=== PATIENT | female | born 1930 | race Caucasian/White ===

== ENCOUNTER 2018-03-11 09:57 | Inpatient (IN) ==
[2018-03-11] MEDS ORDERED: ONDANSETRON 4 MG/2 ML VIAL IV STA (10:23)
[2018-03-11] MEDS ORDERED: cefTRIAXone 1,000 MG in SODIUM CHLORIDE 0.9% 100 ML IV STA (10:23)
[2018-03-11] MEDS ORDERED: methylPREDNISolone SOD SUC 125 MG/2 ML VIAL IV STA (10:23)
[2018-03-11] MEDS ORDERED: DILTIAZEM 50 MG/10 ML VIAL IV STA (10:23)
[2018-03-11] MEDS ORDERED: LEVALBUTEROL 1.25 MG/3 ML NEB RESP TX STA (10:23)
[2018-03-11] MEDS ORDERED: SODIUM CHLORIDE 0.9% 500 ML IV STA (10:23)
[2018-03-11 11:05] LABS: Basophils # 0.1 10*3/uL (0.0-0.2); Basophils % 0.2 % (0.0-0.8); Hematocrit 42.2 VOL% (35.7-47.0); Hemoglobin 13.8 GM/DL (12.0-16.0); Immature Granulocytes % 0.6 %; Immature Granulocytes Absolute 0.14 #; Lymphocytes # 1.3 10*3/uL (1.4-4.0); Lymphocytes % 5.5 % (21.3-54.2); Mean Corpuscular HGB Conc 32.7 GM/DL (32-36); Mean Corpuscular Hemoglobin 31 PG (27-34); Mean Corpuscular Volume 94.2 FL (87-102); Mean Platelet Volume 10.5 FL (9.6-12.0); Monocytes % 8.4 % (1.7-12.7); Neutrophils % 85.3 % (38.7-73.9); Platelet Count 204 T/CUMM (130-400); Red Blood Count 4.48 MC/CUMM (3.8-5.5); Red Cell Distribution Width 15.2 % (9.3-17.3); White Blood Count 23.5 T/CUMM (4-12)
[2018-03-11 11:10] LABS: INR 1.3; PT Patient Result 13.9 SECS
[2018-03-11 11:24] LABS: Alanine Aminotransferase 22 U/L (13-56); Albumin 3.9 G/DL (3.4-5.0); Alkaline Phosphatase 118 U/L (45-117); Aspartate Amino Transferase 25 U/L (0-37); Blood Urea Nitrogen 13 MG/DL (7-18); Calcium 9.4 MG/DL (8.5-10.1); Glucose 103 MG/DL (74-106); Osmolality,Calculated 267.2 MOS/KG (273-304); Potassium 4.1 MMOL/L (3.5-5.1); Sodium 134 MMOL/L (136-145); Total Protein 8.4 G/DL (6.4-8.3); Troponin I Only < 0.015 NG/ML (0.00-0.045)
[2018-03-11] MEDS ORDERED: ENOXAPARIN 100 MG/ML SYRINGE SUBCUT STA (11:26)
[2018-03-11 11:46] LABS: Giant Platelets Few; Hypochromasia 1+; Lymphocytes 11 % (20-55); Platelet Estimate Adequate; Segmented Neutrophils 87 % (50-85); Total Cells Counted 100
[2018-03-11] MEDS ORDERED: DILTIAZEM INJ 100 MG in SODIUM CHLORIDE 0.9% 100 ML IV SCH (12:30)
[2018-03-11] MEDS ORDERED: diphenhydrAMINE CAP 25 MG CAPSULE PO PRN (13:02)
[2018-03-11] MEDS ORDERED: DOCUSATE SODIUM 100 MG CAPSULE PO PRN (13:02)
[2018-03-11] MEDS ORDERED: ACETAMINOPHEN 325 MG TABLET PO PRN (13:02)
[2018-03-11] MEDS ORDERED: guaiFENesin/DM ER 600-30 MG TABLET PO PRN (13:02)
[2018-03-11] MEDS ORDERED: ONDANSETRON 4 MG/2 ML VIAL IV PRN (13:02)
[2018-03-11] MEDS ORDERED: CETIRIZINE 10 MG TABLET PO PRN (13:06)
[2018-03-11] MEDS ORDERED: ALBUTEROL 2.5 MG/3 ML NEB RESP TX PRN (13:08)
[2018-03-11] MEDS: PANTOPRAZOLE 40 MG TABLET PO SCH (15:22)
[2018-03-11] MEDS: LEVOFLOXACIN INJ 750 MG in PREMIX 1 EACH IV SCH (15:23)
[2018-03-11 15:30] LABS: Apearance,Urine Slightly Hazy (Clear); Bacteria,Urine Occasional /HPF (Few); Bilirubin,Urine Negative (Negative); Blood, Urine Negative (Negative); Glucose,Urine (UA) Negative (Negative); Ketones,Urine 20 mg/dL (Negative); Mucus,Urine Occasional /LPF (Occasional); Nitrite,Urine Negative (Negative); Protein,Urine Negative; RBC,Urine <1 /HPF (0-4); Squamous Epithelial Cell,Urine Occasional /HPF (0-10); Urine Color Yellow (Yellow); Urine Specific Gravity 1.006 (1.001-1.035); Urine Urobilinogen < 2.0 EU/DL (0.2-1.0); WBC,Urine 2 /HPF (0-6)
[2018-03-11] MEDS: SODIUM CHLORIDE 0.9% 1,000 ML IV SCH (15:30)
[2018-03-11] MEDS: BUDESONIDE/FORMOTEROL 160-4.5 INHALER 6 GM INH SCH ×2 (15:30→22:22)
[2018-03-11] MEDS: WARFARIN 5 MG TABLET PO SCH (17:28)
[2018-03-11] MEDS ORDERED: WARFARIN 2.5 MG TABLET PO ONE (18:00)
[2018-03-11] MEDS: ALBUTEROL/IPRATROPIUM 3 ML NEB RESP TX SCH (20:04)
[2018-03-11] MEDS ORDERED: ENOXAPARIN 60 MG/0.6 ML SYRINGE SUBCUT SCH (21:00)
[2018-03-11] MEDS: DILTIAZEM 60 MG TABLET PO SCH (21:56)
[2018-03-11] MEDS: DIGOXIN 0.125 MG TABLET PO SCH (21:57)
[2018-03-11] MEDS: methylPREDNISolone SOD SUC 40 MG/1 ML VIAL IV SCH (22:21)
[2018-03-12] MEDS: ALBUTEROL/IPRATROPIUM 3 ML NEB RESP TX SCH ×4 (01:23→19:07)
[2018-03-12 05:03] LABS: Basophils % 0.1 % (0.0-0.8); Hematocrit 34.1 VOL% (35.7-47.0); Hemoglobin 11.4 GM/DL (12.0-16.0); Immature Granulocytes % 0.7 %; Lymphocytes # 0.3 10*3/uL (1.4-4.0); Lymphocytes % 1.9 % (21.3-54.2); Mean Corpuscular HGB Conc 33.4 GM/DL (32-36); Mean Corpuscular Hemoglobin 31 PG (27-34); Mean Corpuscular Volume 92.9 FL (87-102); Mean Platelet Volume 11.3 FL (9.6-12.0); Monocytes # 0.1 10*3/uL (0.11-0.8); Monocytes % 0.9 % (1.7-12.7); Neutrophils # 14.6 10*3/uL (1.4-7.4); Neutrophils % 96.4 % (38.7-73.9); Platelet Count 170 T/CUMM (130-400); Red Blood Count 3.67 MC/CUMM (3.8-5.5); Red Cell Distribution Width 15.3 % (9.3-17.3); White Blood Count 15.1 T/CUMM (4-12)
[2018-03-12 05:41] LABS: Risk Ratio 2.7; VLDL CHOLESTEROL 9.8 MG/DL
[2018-03-12 05:44] LABS: Calcium 8.4 MG/DL (8.5-10.1); Osmolality,Calculated 288.3 MOS/KG (273-304); Potassium 4.3 MMOL/L (3.5-5.1); Thyroid Stimulating Hormone 0.091 uIU/ml (0.358-3.74)
[2018-03-12 05:45] LABS: Band Neutrophils 1 % (0-10); Hypochromasia Slight; Lymphocytes 1 % (20-55); Segmented Neutrophils 96 % (50-85); Total Cells Counted 100
[2018-03-12 05:46] LABS: Microcytosis 1+; Platelet Estimate Adequate
[2018-03-12 05:48] LABS: INR 1.5; PT Patient Result 15.4 SECS
[2018-03-12] MEDS: LEVOTHYROXINE 50 MCG TABLET PO SCH (06:47)
[2018-03-12] MEDS: SODIUM CHLORIDE 0.9% 1,000 ML IV SCH ×2 (06:49→23:02)
[2018-03-12] MEDS: PANTOPRAZOLE 40 MG TABLET PO SCH (09:03)
[2018-03-12] MEDS: DILTIAZEM 60 MG TABLET PO SCH ×2 (09:03→21:37)
[2018-03-12] MEDS: ASCORBIC ACID 500 MG TABLET PO SCH (09:03)
[2018-03-12] MEDS: CHOLECALCIFEROL 1,000 UNIT TABLET PO SCH (09:03)
[2018-03-12] MEDS: methylPREDNISolone SOD SUC 40 MG/1 ML VIAL IV SCH ×2 (09:04→21:38)
[2018-03-12] MEDS: BUDESONIDE/FORMOTEROL 160-4.5 INHALER 6 GM INH SCH ×2 (09:04→21:41)
[2018-03-12] MEDS: LEVOFLOXACIN INJ 750 MG in PREMIX 1 EACH IV SCH (15:15)
[2018-03-12] MEDS: WARFARIN 5 MG TABLET PO SCH (17:34)
[2018-03-12] MEDS: DIGOXIN 0.125 MG TABLET PO SCH (21:37)
[2018-03-13] MEDS: ALBUTEROL/IPRATROPIUM 3 ML NEB RESP TX SCH ×4 (00:06→20:05)
[2018-03-13 04:59] LABS: Basophils % 0.1 % (0.0-0.8); Hematocrit 33.8 VOL% (35.7-47.0); Immature Granulocytes % 1.1 %; Immature Granulocytes Absolute 0.17 #; Lymphocytes # 0.4 10*3/uL (1.4-4.0); Lymphocytes % 2.4 % (21.3-54.2); Mean Corpuscular HGB Conc 32.5 GM/DL (32-36); Mean Corpuscular Hemoglobin 31 PG (27-34); Mean Corpuscular Volume 93.9 FL (87-102); Monocytes # 0.5 10*3/uL (0.11-0.8); Monocytes % 3.4 % (1.7-12.7); Neutrophils # 14.7 10*3/uL (1.4-7.4); Platelet Count 199 T/CUMM (130-400); Red Cell Distribution Width 15.6 % (9.3-17.3); White Blood Count 15.8 T/CUMM (4-12)
[2018-03-13 05:37] LABS: Hypochromasia Slight; Lymphocytes 3 % (20-55); Microcytosis 1+; Segmented Neutrophils 95 % (50-85); Total Cells Counted 100
[2018-03-13 05:38] LABS: Platelet Estimate Adequate
[2018-03-13 05:40] LABS: Calcium 8.5 MG/DL (8.5-10.1); Osmolality,Calculated 288.1 MOS/KG (273-304)
[2018-03-13 05:41] LABS: INR 1.7
[2018-03-13] MEDS: LEVOTHYROXINE 50 MCG TABLET PO SCH (06:27)
[2018-03-13] MEDS: ASCORBIC ACID 500 MG TABLET PO SCH (08:34)
[2018-03-13] MEDS: CHOLECALCIFEROL 1,000 UNIT TABLET PO SCH (08:34)
[2018-03-13] MEDS: PANTOPRAZOLE 40 MG TABLET PO SCH (08:35)
[2018-03-13] MEDS: methylPREDNISolone SOD SUC 40 MG/1 ML VIAL IV SCH ×2 (08:35→21:47)
[2018-03-13] MEDS: DILTIAZEM 60 MG TABLET PO SCH ×2 (08:35→21:49)
[2018-03-13] MEDS: BUDESONIDE/FORMOTEROL 160-4.5 INHALER 6 GM INH SCH ×2 (08:36→21:51)
[2018-03-13] MEDS: SODIUM CHLORIDE 0.9% 1,000 ML IV SCH ×2 (13:10→21:50)
[2018-03-13] MEDS: LEVOFLOXACIN INJ 750 MG in PREMIX 1 EACH IV SCH (15:13)
[2018-03-13] MEDS: WARFARIN 5 MG TABLET PO SCH (17:22)
[2018-03-13] MEDS: DIGOXIN 0.125 MG TABLET PO SCH (21:50)
[2018-03-14] MEDS: ALBUTEROL/IPRATROPIUM 3 ML NEB RESP TX SCH ×2 (01:03→07:46)
[2018-03-14] MEDS: LEVOTHYROXINE 50 MCG TABLET PO SCH (06:02)
[2018-03-14] MEDS: SODIUM CHLORIDE 0.9% 1,000 ML IV SCH ×2 (06:07→10:17)
[2018-03-14 06:13] LABS: Basophils % 0.2 % (0.0-0.8); Hematocrit 34.9 VOL% (35.7-47.0); Hemoglobin 11.6 GM/DL (12.0-16.0); Immature Granulocytes % 2.4 %; Immature Granulocytes Absolute 0.33 #; Lymphocytes # 0.4 10*3/uL (1.4-4.0); Lymphocytes % 2.8 % (21.3-54.2); Mean Corpuscular HGB Conc 33.2 GM/DL (32-36); Mean Corpuscular Hemoglobin 31 PG (27-34); Mean Corpuscular Volume 93.1 FL (87-102); Mean Platelet Volume 10.4 FL (9.6-12.0); Monocytes # 0.5 10*3/uL (0.11-0.8); Monocytes % 3.9 % (1.7-12.7); Neutrophils # 12.2 10*3/uL (1.4-7.4); Neutrophils % 90.7 % (38.7-73.9); Platelet Count 221 T/CUMM (130-400); Red Blood Count 3.75 MC/CUMM (3.8-5.5); Red Cell Distribution Width 15.9 % (9.3-17.3); White Blood Count 13.5 T/CUMM (4-12)
[2018-03-14 06:27] LABS: INR 2.3
[2018-03-14 06:35] LABS: Giant Platelets Few; Hypochromasia 1+; Lymphocytes 7 % (20-55); Ovalocytes Slight; Platelet Estimate Adequate; Segmented Neutrophils 91 % (50-85); Total Cells Counted 100
[2018-03-14 06:36] LABS: Microcytosis Slight
[2018-03-14 06:44] LABS: Calcium 8.5 MG/DL (8.5-10.1); Osmolality,Calculated 287.1 MOS/KG (273-304); Potassium 3.7 MMOL/L (3.5-5.1)
[2018-03-14] MEDS: methylPREDNISolone SOD SUC 40 MG/1 ML VIAL IV SCH (09:45)
[2018-03-14] MEDS: DILTIAZEM 60 MG TABLET PO SCH (10:18)
[2018-03-14] MEDS: ASCORBIC ACID 500 MG TABLET PO SCH (10:18)
[2018-03-14] MEDS: BUDESONIDE/FORMOTEROL 160-4.5 INHALER 6 GM INH SCH (10:19)
[2018-03-14] MEDS: CHOLECALCIFEROL 1,000 UNIT TABLET PO SCH (10:19)
[2018-03-14] MEDS: PANTOPRAZOLE 40 MG TABLET PO SCH (10:19)
[2018-03-14 12:01] VITALS: BP 135/80
== END 2018-03-14 14:30 | disposition home or self-care (01) | DRG 192 ==
LOC: N.ED 09:57 → N.EDINP 13:02 → N.TELES 13:34

== ENCOUNTER 2019-01-21 18:12 | Inpatient (IN) ==
[2019-01-21] MEDS ORDERED: DILTIAZEM 50 MG/10 ML VIAL IV STA (18:37)
[2019-01-21 19:07] LABS: Basophils # 0.1 10*3/uL (0.0-0.2); Basophils % 0.2 % (0.0-0.8); Hemoglobin 12.5 GM/DL (12.0-16.0); Immature Granulocytes % 0.7 %; Immature Granulocytes Absolute 0.14 #; Lymphocytes # 0.6 10*3/uL (1.4-4.0); Lymphocytes % 3.2 % (21.3-54.2); Mean Corpuscular HGB Conc 31.3 GM/DL (32-36); Mean Corpuscular Hemoglobin 30 PG (27-34); Mean Corpuscular Volume 94.6 FL (87-102); Mean Platelet Volume 10.7 FL (9.6-12.0); Monocytes # 1.3 10*3/uL (0.11-0.8); Monocytes % 6.5 % (1.7-12.7); Neutrophils % 89.4 % (38.7-73.9); Platelet Count 206 T/CUMM (130-400); Red Blood Count 4.23 MC/CUMM (3.8-5.5); Red Cell Distribution Width 16.2 % (9.3-17.3); White Blood Count 20.1 T/CUMM (4-12)
[2019-01-21 19:20] LABS: INR 1.8; PT Patient Result 19.5 SECS
[2019-01-21 19:39] LABS: Albumin 3.6 G/DL (3.4-5.0); Bilirubin,Total 0.6 MG/DL (0.2-1.0); Calcium 8.7 MG/DL (8.5-10.1); Potassium 4.1 MMOL/L (3.5-5.1)
[2019-01-21 19:43] LABS: Band Neutrophils 3 % (0-10); Lymphocytes 5 % (20-55); Platelet Estimate Normal; Segmented Neutrophils 89 % (50-85)
[2019-01-21 19:44] LABS: Stomatocytes Few
[2019-01-21 19:45] LABS: Anisocytosis Slight
[2019-01-21 19:46] LABS: Total Cells Counted 100
[2019-01-21] MEDS ORDERED: SODIUM CHLORIDE 0.9% 1,000 ML IV STA (20:34)
[2019-01-21] MEDS ORDERED: VANCOMYCIN INJ 1,000 MG in SODIUM CHLORIDE 0.9% 250 ML IV STA (20:34)
[2019-01-21] MEDS ORDERED: CEFEPIME 2,000 MG in SODIUM CHLORIDE 0.9% 100 ML IV STA (20:34)
[2019-01-21] MEDS ORDERED: CEFEPIME 2,000 MG VIAL ONE (20:38)
[2019-01-21] MEDS ORDERED: SODIUM CHLORIDE 0.9% 100 ML IV ONE (20:39)
[2019-01-21] MEDS ORDERED: ACETAMINOPHEN 325 MG TABLET PO PRN (22:01)
[2019-01-21] MEDS ORDERED: BUDESONIDE/FORMOTEROL 160-4.5 INHALER 6 GM INH PRN (22:11)
[2019-01-21] MEDS ORDERED: dilTIAZem Drip 125 MG/125 ML PREMIX IV SCH (22:30)
[2019-01-22] MEDS: DIGOXIN 0.25 MG TABLET PO SCH ×2 (00:30→22:08)
[2019-01-22] MEDS: AZITHROMYCIN INJ 500 MG in SODIUM CHLORIDE 0.9% 250 ML IV SCH (00:30)
[2019-01-22] MEDS: LEVOTHYROXINE 50 MCG TABLET PO SCH (06:29)
[2019-01-22 07:02] LABS: Basophils # 0.1 10*3/uL (0.0-0.2); Basophils % 0.3 % (0.0-0.8); Immature Granulocytes % 0.9 %; Immature Granulocytes Absolute 0.24 #; Lymphocytes # 1.4 10*3/uL (1.4-4.0); Lymphocytes % 5.1 % (21.3-54.2); Mean Corpuscular HGB Conc 32.4 GM/DL (32-36); Mean Corpuscular Hemoglobin 30 PG (27-34); Mean Corpuscular Volume 93.7 FL (87-102); Mean Platelet Volume 10.1 FL (9.6-12.0); Monocytes % 7.2 % (1.7-12.7); Neutrophils # 24.2 10*3/uL (1.4-7.4); Neutrophils % 86.5 % (38.7-73.9); Platelet Count 171 T/CUMM (130-400); Red Blood Count 3.63 MC/CUMM (3.8-5.5)
[2019-01-22 07:15] LABS: INR 1.9; PT Patient Result 20.8 SECS
[2019-01-22 07:26] LABS: Anisocytosis 1+; Band Neutrophils 15 % (0-10); Lymphocytes 6 % (20-55); Macrocytosis 1+; Platelet Estimate Normal; Segmented Neutrophils 73 % (50-85); Total Cells Counted 100
[2019-01-22] MEDS: ASCORBIC ACID 500 MG TABLET PO SCH (08:34)
[2019-01-22] MEDS: CHOLECALCIFEROL 1,000 UNIT TABLET PO SCH (08:34)
[2019-01-22] MEDS: PANTOPRAZOLE 40 MG TABLET PO SCH (08:34)
[2019-01-22] MEDS ORDERED: WARFARIN 1 MG TABLET PO ONE (09:41)
[2019-01-22] MEDS ORDERED: SODIUM CHLORIDE 0.9% 1,000 ML IV SCH (10:00)
[2019-01-22] MEDS: LEVOFLOXACIN INJ 500 MG in PREMIX 1 EACH IV SCH (10:19)
[2019-01-22] MEDS: PIPERACILLIN/TAZOBACTAM 3,375 MG in SODIUM CHLORIDE 0.9% 100 ML IV SCH ×2 (11:46→22:08)
[2019-01-22] MEDS ORDERED: cefTRIAXone 1,000 MG in SYRINGE 1 EACH IV SCH (12:00)
[2019-01-22] MEDS ORDERED: WARFARIN 5 MG TABLET PO SCH (17:00)
[2019-01-22] MEDS: DILTIAZEM 30 MG TABLET PO SCH (22:08)
[2019-01-23] MEDS: AZITHROMYCIN INJ 500 MG in SODIUM CHLORIDE 0.9% 250 ML IV SCH (02:00)
[2019-01-23] MEDS ORDERED: AZITHROMYCIN INJ 500 MG in SODIUM CHLORIDE 0.9% 250 ML IV SCH (02:30)
[2019-01-23] MEDS: guaiFENesin/CODEINE 5 ML LIQUID PO PRN ×3 (03:42→23:26)
[2019-01-23] MEDS: PIPERACILLIN/TAZOBACTAM 3,375 MG in SODIUM CHLORIDE 0.9% 100 ML IV SCH ×3 (05:38→20:50)
[2019-01-23 05:39] LABS: Basophils % 0.1 % (0.0-0.8); Eosinophils % 0.2 % (0.00-10.9); Hematocrit 33.3 VOL% (35.7-47.0); Hemoglobin 10.2 GM/DL (12.0-16.0); Immature Granulocytes % 0.6 %; Immature Granulocytes Absolute 0.09 #; Lymphocytes # 1.1 10*3/uL (1.4-4.0); Lymphocytes % 7.7 % (21.3-54.2); Mean Corpuscular HGB Conc 30.6 GM/DL (32-36); Mean Corpuscular Hemoglobin 30 PG (27-34); Mean Corpuscular Volume 97.1 FL (87-102); Mean Platelet Volume 10.8 FL (9.6-12.0); Monocytes # 1.5 10*3/uL (0.11-0.8); Monocytes % 10.2 % (1.7-12.7); Neutrophils # 11.8 10*3/uL (1.4-7.4); Neutrophils % 81.2 % (38.7-73.9); Platelet Count 163 T/CUMM (130-400); Red Blood Count 3.43 MC/CUMM (3.8-5.5); Red Cell Distribution Width 16.7 % (9.3-17.3); White Blood Count 14.5 T/CUMM (4-12)
[2019-01-23] MEDS: LEVOTHYROXINE 50 MCG TABLET PO SCH (05:39)
[2019-01-23 05:52] LABS: INR 1.7; PT Patient Result 18.8 SECS
[2019-01-23 05:56] LABS: INR 1.7; PT Patient Result 18.7 SECS; Partial Thromboplastin Time 39.1 SECS (0-40)
[2019-01-23 06:15] LABS: Calcium 8.1 MG/DL (8.5-10.1); Osmolality,Calculated 280.3 MOS/KG (273-304); Potassium 3.9 MMOL/L (3.5-5.1); Thyroid Stimulating Hormone 0.445 uIU/ml (0.358-3.74)
[2019-01-23] MEDS: DILTIAZEM 30 MG TABLET PO SCH ×2 (08:54→20:50)
[2019-01-23] MEDS ORDERED: AZITHROMYCIN 250 MG TABLET PO SCH (09:00)
[2019-01-23] MEDS: CHOLECALCIFEROL 1,000 UNIT TABLET PO SCH (10:14)
[2019-01-23] MEDS: PANTOPRAZOLE 40 MG TABLET PO SCH (10:14)
[2019-01-23] MEDS: ASCORBIC ACID 500 MG TABLET PO SCH (10:14)
[2019-01-23] MEDS: LEVOFLOXACIN INJ 500 MG in PREMIX 1 EACH IV SCH (10:16)
[2019-01-23] MEDS ORDERED: MAGNESIUM HYDROXIDE SUSP 30 ML UDCUP PO ONE (18:35)
[2019-01-23] MEDS: DIGOXIN 0.25 MG TABLET PO SCH (20:50)
[2019-01-24 05:23] LABS: INR 1.8; PT Patient Result 19.1 SECS
[2019-01-24] MEDS: LEVOTHYROXINE 50 MCG TABLET PO SCH (05:33)
[2019-01-24] MEDS: PIPERACILLIN/TAZOBACTAM 3,375 MG in SODIUM CHLORIDE 0.9% 100 ML IV SCH ×2 (05:34→12:56)
[2019-01-24 05:38] LABS: Basophils % 0.3 % (0.0-0.8); Eosinophils # 0.1 10*3/uL (0.0-0.87); Eosinophils % 1.1 % (0.00-10.9); Hematocrit 34.2 VOL% (35.7-47.0); Hemoglobin 10.4 GM/DL (12.0-16.0); Immature Granulocytes % 0.5 %; Immature Granulocytes Absolute 0.05 #; Lymphocytes # 1.2 10*3/uL (1.4-4.0); Lymphocytes % 11.5 % (21.3-54.2); Mean Corpuscular HGB Conc 30.4 GM/DL (32-36); Mean Corpuscular Hemoglobin 29 PG (27-34); Mean Corpuscular Volume 96.3 FL (87-102); Mean Platelet Volume 10.6 FL (9.6-12.0); Monocytes # 1.2 10*3/uL (0.11-0.8); Monocytes % 12.3 % (1.7-12.7); Neutrophils # 7.4 10*3/uL (1.4-7.4); Neutrophils % 74.3 % (38.7-73.9); Platelet Count 197 T/CUMM (130-400); Red Blood Count 3.55 MC/CUMM (3.8-5.5); Red Cell Distribution Width 16.4 % (9.3-17.3)
[2019-01-24 05:41] LABS: Calcium 8.3 MG/DL (8.5-10.1); Osmolality,Calculated 276.4 MOS/KG (273-304); Potassium 3.9 MMOL/L (3.5-5.1)
[2019-01-24] MEDS: guaiFENesin/CODEINE 5 ML LIQUID PO PRN ×2 (08:35→18:02)
[2019-01-24] MEDS: CHOLECALCIFEROL 1,000 UNIT TABLET PO SCH (08:35)
[2019-01-24] MEDS: DILTIAZEM 30 MG TABLET PO SCH ×2 (08:36→21:50)
[2019-01-24] MEDS: ASCORBIC ACID 500 MG TABLET PO SCH (08:36)
[2019-01-24] MEDS: PANTOPRAZOLE 40 MG TABLET PO SCH (08:36)
[2019-01-24] MEDS: LEVOFLOXACIN INJ 500 MG in PREMIX 1 EACH IV SCH (11:06)
[2019-01-24] MEDS: AMOXICILLIN/CLAV 875 MG TABLET PO SCH ×2 (14:15→21:50)
[2019-01-24] MEDS ORDERED: WARFARIN 5 MG TABLET PO SCH (18:00)
[2019-01-24] MEDS: DIGOXIN 0.25 MG TABLET PO SCH (21:51)
[2019-01-25 05:03] LABS: INR 1.4; PT Patient Result 15.5 SECS
[2019-01-25] MEDS: LEVOTHYROXINE 50 MCG TABLET PO SCH (05:58)
[2019-01-25 08:21] VITALS: BP 127/70
[2019-01-25] MEDS: CHOLECALCIFEROL 1,000 UNIT TABLET PO SCH (08:48)
[2019-01-25] MEDS: DILTIAZEM 30 MG TABLET PO SCH (08:49)
[2019-01-25] MEDS: ASCORBIC ACID 500 MG TABLET PO SCH (08:49)
[2019-01-25] MEDS: PANTOPRAZOLE 40 MG TABLET PO SCH (08:49)
[2019-01-25] MEDS: AMOXICILLIN/CLAV 875 MG TABLET PO SCH (08:56)
[2019-01-25] MEDS ORDERED: AZITHROMYCIN 250 MG TABLET PO SCH (09:00)
== END 2019-01-25 12:08 | disposition home health service (06) | DRG 179 ==
LOC: EDBD → EDUNIT# → N.ED 18:12 → N.EDINP 22:01 → SUATTDRO 22:01 → N.TELES 22:49
PROVIDERS: ADMIT Internal Medicine; ATTEND Internal Medicine

== ENCOUNTER 2019-04-01 19:43 | Inpatient (IN) ==
[2019-04-01] MEDS ORDERED: fentaNYL 100 MCG/2 ML VIAL IV STA (21:10)
[2019-04-01 21:35] LABS: Basophils # 0.1 10*3/uL (0.0-0.2); Basophils % 0.6 % (0.0-0.8); Eosinophils # 0.1 10*3/uL (0.0-0.87); Hematocrit 39.6 VOL% (35.7-47.0); Hemoglobin 12.1 GM/DL (12.0-16.0); Immature Granulocytes % 1.2 %; Immature Granulocytes Absolute 0.11 #; Lymphocytes # 1.4 10*3/uL (1.4-4.0); Lymphocytes % 14.9 % (21.3-54.2); Mean Corpuscular HGB Conc 30.6 GM/DL (32-36); Mean Corpuscular Volume 96.8 FL (87-102); Mean Platelet Volume 10.2 FL (9.6-12.0); Monocytes % 9.6 % (1.7-12.7); Neutrophils % 72.7 % (38.7-73.9); Platelet Count 199 T/CUMM (130-400); Red Blood Count 4.09 MC/CUMM (3.8-5.5); Red Cell Distribution Width 15.4 % (9.3-17.3)
[2019-04-01 21:52] LABS: Albumin 3.7 G/DL (3.4-5.0); Bilirubin,Total 0.4 MG/DL (0.2-1.0); Calcium 8.8 MG/DL (8.5-10.1); Osmolality,Calculated 284.1 MOS/KG (273-304)
[2019-04-01 22:44] LABS: INR 1.5; PT Patient Result 16.1 SECS
[2019-04-02] MEDS ORDERED: BISACODYL 5 MG TABLET PO PRN (00:50)
[2019-04-02] MEDS ORDERED: DOCUSATE SODIUM 100 MG CAPSULE PO PRN (00:50)
[2019-04-02] MEDS ORDERED: ceFAZolin 1,000 MG in SYRINGE 1 EACH IV ONE (00:50)
[2019-04-02] MEDS ORDERED: ACETAMINOPHEN 325 MG TABLET PO PRN (00:50)
[2019-04-02] MEDS ORDERED: DILTIAZEM 30 MG TABLET PO SCH (01:00)
[2019-04-02] MEDS: DILTIAZEM 30 MG TABLET PO SCH ×4 (02:59→20:43)
[2019-04-02 05:23] LABS: Basophils % 0.2 % (0.0-0.8); Eosinophils % 0.1 % (0.00-10.9); Hematocrit 37.1 VOL% (35.7-47.0); Hemoglobin 11.5 GM/DL (12.0-16.0); Immature Granulocytes % 0.5 %; Immature Granulocytes Absolute 0.07 #; Lymphocytes # 0.8 10*3/uL (1.4-4.0); Lymphocytes % 6.2 % (21.3-54.2); Mean Corpuscular Volume 96.1 FL (87-102); Mean Platelet Volume 10.8 FL (9.6-12.0); Monocytes % 7.2 % (1.7-12.7); Neutrophils % 85.8 % (38.7-73.9); Platelet Count 189 T/CUMM (130-400); Red Blood Count 3.86 MC/CUMM (3.8-5.5); Red Cell Distribution Width 15.5 % (9.3-17.3); White Blood Count 13.4 T/CUMM (4-12)
[2019-04-02 05:38] LABS: INR 1.5; PT Patient Result 16.1 SECS
[2019-04-02 05:39] LABS: Calcium 8.8 MG/DL (8.5-10.1); Osmolality,Calculated 278.5 MOS/KG (273-304)
[2019-04-02] MEDS: LEVOTHYROXINE 75 MCG TABLET PO SCH (06:27)
[2019-04-02] MEDS: PANTOPRAZOLE 40 MG TABLET PO SCH (08:48)
[2019-04-02] MEDS: CHOLECALCIFEROL 1,000 UNIT TABLET PO SCH (08:48)
[2019-04-02] MEDS ORDERED: NON-FORMULARY MEDICATION (Omeprazole 20 MG) PO SCH (09:00)
[2019-04-02] MEDS: DIGOXIN 0.25 MG TABLET PO SCH (13:18)
[2019-04-02] MEDS: oxyCODONE IR 5 MG TABLET PO PRN ×2 (13:51→23:11)
[2019-04-03] MEDS: DILTIAZEM 30 MG TABLET PO SCH ×4 (02:31→20:46)
[2019-04-03 03:24] LABS: Basophils % 0.2 % (0.0-0.8); Eosinophils # 0.1 10*3/uL (0.0-0.87); Eosinophils % 0.5 % (0.00-10.9); Hematocrit 34.5 VOL% (35.7-47.0); Hemoglobin 10.6 GM/DL (12.0-16.0); Immature Granulocytes % 0.6 %; Immature Granulocytes Absolute 0.06 #; Lymphocytes # 1.6 10*3/uL (1.4-4.0); Lymphocytes % 15.6 % (21.3-54.2); Mean Corpuscular HGB Conc 30.7 GM/DL (32-36); Mean Corpuscular Volume 96.6 FL (87-102); Mean Platelet Volume 10.7 FL (9.6-12.0); Monocytes % 12.8 % (1.7-12.7); Neutrophils % 70.3 % (38.7-73.9); Platelet Count 164 T/CUMM (130-400); Red Blood Count 3.57 MC/CUMM (3.8-5.5); Red Cell Distribution Width 15.2 % (9.3-17.3); White Blood Count 10.5 T/CUMM (4-12)
[2019-04-03 03:38] LABS: Calcium 8.5 MG/DL (8.5-10.1); Osmolality,Calculated 276.7 MOS/KG (273-304)
[2019-04-03 03:44] LABS: INR 1.6; PT Patient Result 17.1 SECS
[2019-04-03] MEDS: LEVOTHYROXINE 75 MCG TABLET PO SCH (06:03)
[2019-04-03] MEDS: CHOLECALCIFEROL 1,000 UNIT TABLET PO SCH (09:17)
[2019-04-03] MEDS: PANTOPRAZOLE 40 MG TABLET PO SCH (09:18)
[2019-04-03] MEDS: oxyCODONE IR 5 MG TABLET PO PRN (09:20)
[2019-04-03] MEDS: MORPHINE 4 MG/1 ML VIAL IV PRN (11:25)
[2019-04-03] MEDS: DIGOXIN 0.25 MG TABLET PO SCH (13:49)
[2019-04-04] MEDS: DILTIAZEM 30 MG TABLET PO SCH ×4 (02:23→21:14)
[2019-04-04 04:39] LABS: Basophils % 0.4 % (0.0-0.8); Eosinophils # 0.1 10*3/uL (0.0-0.87); Eosinophils % 1.3 % (0.00-10.9); Hematocrit 32.4 VOL% (35.7-47.0); Hemoglobin 10.1 GM/DL (12.0-16.0); Immature Granulocytes % 0.5 %; Immature Granulocytes Absolute 0.05 #; Lymphocytes # 1.4 10*3/uL (1.4-4.0); Lymphocytes % 12.8 % (21.3-54.2); Mean Corpuscular HGB Conc 31.2 GM/DL (32-36); Mean Corpuscular Volume 95.9 FL (87-102); Mean Platelet Volume 10.3 FL (9.6-12.0); Monocytes % 14.5 % (1.7-12.7); Neutrophils % 70.5 % (38.7-73.9); Platelet Count 150 T/CUMM (130-400); Red Blood Count 3.38 MC/CUMM (3.8-5.5); Red Cell Distribution Width 14.9 % (9.3-17.3)
[2019-04-04 04:58] LABS: INR 1.3
[2019-04-04 05:04] LABS: Calcium 8.4 MG/DL (8.5-10.1); Osmolality,Calculated 273.8 MOS/KG (273-304)
[2019-04-04] MEDS: LEVOTHYROXINE 75 MCG TABLET PO SCH (06:21)
[2019-04-04] MEDS: CHOLECALCIFEROL 1,000 UNIT TABLET PO SCH (08:01)
[2019-04-04] MEDS: PANTOPRAZOLE 40 MG TABLET PO SCH (08:01)
[2019-04-04] MEDS: oxyCODONE IR 5 MG TABLET PO PRN ×2 (09:36→21:14)
[2019-04-04] MEDS: DIGOXIN 0.25 MG TABLET PO SCH (13:47)
[2019-04-05] MEDS: DILTIAZEM 30 MG TABLET PO SCH ×4 (03:02→20:48)
[2019-04-05 06:25] LABS: INR 1.1; PT Patient Result 11.4 SECS
[2019-04-05] MEDS: LEVOTHYROXINE 75 MCG TABLET PO SCH (06:32)
[2019-04-05] MEDS: PANTOPRAZOLE 40 MG TABLET PO SCH (08:43)
[2019-04-05] MEDS: CHOLECALCIFEROL 1,000 UNIT TABLET PO SCH (08:43)
[2019-04-05] MEDS: oxyCODONE IR 5 MG TABLET PO PRN ×2 (08:43→15:32)
[2019-04-05] MEDS: MAGNESIUM HYDROXIDE SUSP 30 ML UDCUP PO PRN ×2 (08:44→12:06)
[2019-04-05] MEDS ORDERED: MAGNESIUM HYDROXIDE SUSP 30 ML UDCUP PO ONE (10:41)
[2019-04-05] MEDS ORDERED: BISACODYL 5 MG TABLET PO ONE (10:41)
[2019-04-05] MEDS: DIGOXIN 0.25 MG TABLET PO SCH (12:06)
[2019-04-05] MEDS: ENOXAPARIN 60 MG/0.6 ML SYRINGE SUBCUT SCH ×2 (12:07→20:49)
[2019-04-05] MEDS: MORPHINE 4 MG/1 ML VIAL IV PRN (17:14)
[2019-04-05] MEDS: ONDANSETRON 4 MG/2 ML VIAL IV PRN (17:18)
[2019-04-05] MEDS ORDERED: WARFARIN 2.5 MG TABLET PO SCH (18:00)
[2019-04-06] MEDS: MORPHINE 4 MG/1 ML VIAL IV PRN ×2 (00:15→10:15)
[2019-04-06] MEDS: DILTIAZEM 30 MG TABLET PO SCH ×2 (03:16→08:33)
[2019-04-06 05:13] LABS: PT Patient Result 10.9 SECS
[2019-04-06] MEDS: LEVOTHYROXINE 75 MCG TABLET PO SCH (05:50)
[2019-04-06] MEDS: CHOLECALCIFEROL 1,000 UNIT TABLET PO SCH (08:33)
[2019-04-06] MEDS: oxyCODONE IR 5 MG TABLET PO PRN (08:34)
[2019-04-06] MEDS: PANTOPRAZOLE 40 MG TABLET PO SCH (08:34)
[2019-04-06] MEDS: ENOXAPARIN 60 MG/0.6 ML SYRINGE SUBCUT SCH (08:34)
[2019-04-06] MEDS: ONDANSETRON 4 MG/2 ML VIAL IV PRN (10:15)
[2019-04-06 11:58] VITALS: BP 109/68
== END 2019-04-06 12:30 | disposition swing bed (61) | DRG 563 ==
LOC: EDBD → EDUNIT# → N.ED 19:43 → SUATTDRO 04-02 00:50 → N.EDINP 04-02 00:50 → N.TELEN 04-02 02:09
PROVIDERS: ADMIT Internal Medicine; ATTEND Internal Medicine